=== PATIENT | male | born 1950 | race Caucasian/White ===

== ENCOUNTER → 2016-09-19 | Day surgery (SDC) | payer OTHER | END | disposition home or self-care (01) | LOC: SDCH 10:32 | DX: Z12.11 Encounter for screening for malignant neoplasm of colon (principal); D23.9 Other benign neoplasm of skin, unspecified; I10 Essential (primary) hypertension; I25.2 Old myocardial infarction; I25.10 Atherosclerotic heart disease of native coronary artery without angina pectoris; K21.9 Gastro-esophageal reflux disease without esophagitis; M19.90 Unspecified osteoarthritis, unspecified site; G89.29 Other chronic pain; I71.4 Abdominal aortic aneurysm, without rupture; F17.210 Nicotine dependence, cigarettes, uncomplicated; Z95.5 Presence of coronary angioplasty implant and graft; Z88.0 Allergy status to penicillin | CPT/HCPCS: 11440; G0121; 88342; J2704 ==